=== PATIENT | male | born 1930 | race Caucasian/White ===

== ENCOUNTER 2016-10-25 11:58 | Emergency (ER) | payer OTHER ==
[2016-10-25 12:03] VITALS: RESP 16; TEMP 97.9
--- NOTE | 2016-10-25 12:13 | CPEKG ---
Heart Rate: 71 RR Interval: 845 P-R Interval: 172 QRSD Interval: 84 QT Interval: 376 QTC Interval: 409 P [place]: 32 QRS [place]: 38 T Wave [place]: 41 EKG Severity - BORDERLINE ECG - EKG Impression: SINUS RHYTHM EKG Impression: ATRIAL PREMATURE COMPLEX EKG Impression: PROBABLE LEFT ATRIAL ABNORMALITY EKG Impression: LOW VOLTAGE IN FRONTAL LEADS Electronically Signed By: Farzad Lee 25-Oct-2016 12:50:34
--- NOTE | 2016-10-25 13:48 | EDPHY ---
H & P Time Seen by Provider: 10/25/16 12:17 HPI/ROS: CHIEF COMPLAINT: Pulsating sensation in the ears HISTORY OF PRESENT ILLNESS: 86-year-old male presents an intermittent pulsing sensation in his ears. 2 weeks ago, when he is lying down to go to sleep, he noted a pulsating sensation in his ears. He had no other associated symptoms and did not have a headache, chest pain or shortness of breath. He fell to sleep and when he woke up he did not have the pulsating sensation. However every night when he goes to bed and is lying on his back, he has a transient pulsating sensation in his ears. Last night however he does not think that he had this sensation. He compared the pulsations in his ears to his heart rate and initially they were similar, but now the pulsating sensation in the ears is quite more frequent than his pulse. REVIEW OF SYSTEMS: Constitutional: No fever, no chills Eyes: No visual changes ENT: No sore throat Respiratory: No cough, no shortness of breath Cardiac: No chest pain Gastrointestinal: No nausea, no vomiting, no abdominal pain Genitourinary: No hematuria, no dysuria Musculoskeletal: No leg pain or swelling Skin: No rash Neurological: No headache, no numbness, no weakness Psychiatric: No depression Past Medical/Surgical History: Macular degeneration Social History: Lives independently in his own home Smoking Status: Never smoked Physical Exam: General Appearance: Alert, pleasant Eyes: Pupils equal and round, no conjunctival pallor or injection ENT, Mouth: Mucous membranes moist, tympanic membranes normal Neck: Normal inspection, no carotid bruit Respiratory: Lungs are clear to auscultation Cardiovascular: Regular rate and rhythm, no murmur Gastrointestinal: Abdomen is soft and nontender Neurological: Alert, oriented x3, cranial nerves II through XII intact, motor 5 /5, sensory intact to light touch, normal gait. Skin: Warm and dry Extremities: normal inspection Psychiatric: Mood and affect normal Constitutional: Initial Vital Signs Temperature (C) 36.6 C 10/25/16 12:01 Heart Rate 81 10/25/16 12:01 Respiratory Rate 16 10/25/16 12:01 Blood Pressure 135/92 H 10/25/16 12:01 O2 Sat (%) 95 10/25/16 12:01 O2 Delivery Mode Room Air Allergies/Adverse Reactions: No Known Allergies Allergy (Verified 02/17/16 11:23) Home Medications: Medication Instructions Recorded NK [No Known Home Meds] 02/07/16 Medical Decision Making - Diagnostics EKG Interpretation: EKG interpreted by me reveals normal sinus rhythm, no ST or T segment changes. ED Course/Re-evaluation: Unclear etiology of symptoms. However there is no evidence for acute dysrhythmia, CVA or acute coronary syndrome. In addition I do not suspect an intracranial mass, given lack of headache or neurologic symptoms. I feel that he is safe and stable for discharge from the emergency department. He may benefit from from an outpatient Holter monitor. Warning signs discussed. Departure - Departure Disposition: Home, Routine, Self-Care Clinical Impression: Pulsating sensation in head Condition: Good Instructions: Additional Information Additional Instructions: Return with any concerns, including headache, dizziness, chest pain or shortness of breath. Referrals: Doug Lopez MD [Primary Care Provider] - 2-3 days without fail
[2016-10-25 14:05] VITALS: BP 118/84; PULSE 66; O2SAT 94
== END 2016-10-25 14:05 | disposition home or self-care (01) ==
DX: R20.2 Paresthesia of skin (principal)